=== PATIENT | female | born 1940 | race Caucasian/White ===

== ENCOUNTER 2016-03-01 10:26 | Emergency (ER) | payer OTHER ==
[~2016-03-01] VITALS: Ht 170.2 cm; Wt 90.0 kg
[~2016-03-01 10:26] MED LIST: LIPITOR20 MG PO; MOBIC7.5 MG PO; PREMARIN0.625 MG PO; Tylenol Regular Stre PO; Vicodin,Lortab 5/500 PO; Xanax PO; ZESTRIL,PRINIVI10 M1 PO
[2016-03-01 10:53] LABS: HEMATOCRIT 42.7 % (36.0-46.0); MCH 30.5 PG (29.0-34.0); MCHC 33.7 G/DL (30.0-36.0); MCV 90.5 FL (83-99); MEAN PLAT.VOLUME 10.1 uM^3 (9.5-12.4); PLATELET COUNT 351 K/uL (156-360); RBC DIS.WIDTH-CV 13.9 % (11.8-14.6); RBC DIS.WIDTH-SD 44.8 % (39-53); RED BLOOD COUNT 4.72 M/uL (3.80-5.20); WHITE BLOOD COUNT 12.7 K/uL (4.1-10.2)
[2016-03-01 11:04] LABS: CHLORIDE 108 mEq/L (99-109); POTASSIUM 4.5 mEq/L (3.7-5.4); SODIUM 141 mEq/L (136-147)
[2016-03-01 11:05] LABS: GLUCOSE 120 mg/dL (70-99)
[2016-03-01 11:07] LABS: ANION GAP 9 MEQ/L (2-14)
[2016-03-01 11:09] LABS: GFR ESTIMATE (CALCULATED) > 59 mL/min/
[2016-03-01 11:10] LABS: UREA NITROGEN (BUN) 20 mg/dL (9-23)
[2016-03-01 11:13] LABS: TROP-I INTERPRETATION NEGATIVE; TROPONIN-I < 0.01 ng/mL (0.0-0.30)
[2016-03-01 15:01] VITALS: BP 130/85
== END 2016-03-01 15:07 | disposition home or self-care (01) ==
LOC: EME 10:26
PROVIDERS: Emergency Medicine
DX: J40 Bronchitis, not specified as acute or chronic (principal); R00.2 Palpitations; I10 Essential (primary) hypertension; Z91.040 Latex allergy status; Z88.5 Allergy status to narcotic agent; Z88.8 Allergy status to other drugs, medicaments and biological substances
CPT/HCPCS: 71020; 80048; 84484; 85027; 85379; 93005; 99281; 99284